=== PATIENT | female | born 1965 | race Hispanic/Latino ===

== ENCOUNTER 2017-04-27 15:12 | Inpatient (IN) | payer BC ==
[~2017-04-27] VITALS: Ht 167.6 cm; Wt 109.1 kg
[2017-04-27 17:30] VITALS: BP 144/82
[2017-04-27 17:44] LABS: EOSINOPHILS % (AUTO) 3.4 % (0.0-8.0); HEMATOCRIT 43.5 % (36-48); MEAN CORPUSCULAR HEMOGLOBIN 31.4 pg (27.0-33.0); MEAN CORPUSCULAR HGB CONC 33.9 g/dL (32.0-36.0); MEAN CORPUSCULAR VOLUME 92.6 fL (79-99); MONOCYTES % (AUTO) 7.8 % (3.0-13.0); NEUTROPHILS % (AUTO) 58.8 % (40.0-77.0); PLATELET COUNT (AUTO) 399 K/uL (130-400); RED CELL DISTRIBUTION WIDTH 14.5 % (11.0-15.5); WHITE BLOOD COUNT (AUTO) 10.6 K/uL (4.8-10.8)
[2017-04-27 17:53] LABS: CREATININE 0.8 mg/dL (0.5-1.5); POTASSIUM 3.9 mmol/L (3.5-5.1)
[2017-04-27 17:58] LABS: INR 0.96 (0.85-1.15); PARTIAL THROMBOPLASTIN TIME 28.7 SEC (26.3-35.5); PROTHROMBIN TIME 10.1 SEC (9.6-11.6)
[2017-04-27] MEDS ORDERED: LOSA1TAB37 PO (17:58)
[2017-04-27] MEDS ORDERED: MONT10TA24 PO (17:58)
[2017-04-27] MEDS ORDERED: MOMETASONE FUROATE NASAL (17:58)
[2017-04-27] MEDS ORDERED: EZET10TA26 PO (17:58)
[2017-04-27] MEDS ORDERED: CETI10TA57 PO (17:58)
[2017-04-27 18:01] LABS: APPEARANCE,URINE Clear (CLEAR); BILIRUBIN,URINE Negative (NEGATIVE); COLOR,URINE Yellow (YELLOW); GLUCOSE, URINE (UA) Negative (NEGATIVE); KETONES,URINE Negative (NEGATIVE); LEUKOCYTE ESTERASE ,URINE Trace (NEGATIVE); NITRATE,URINE Negative (NEGATIVE); OCCULT BLOOD,URINE Moderate (NEGATIVE); PH,URINE 5.5 (5.0-8.0); PROTEIN,URINE Negative (NEGATIVE); UROBILINOGEN,URINE 0.2 mg/dL (0.2-1.0)
[2017-04-27 18:50] LABS: BACTERIA,URINE Few /HPF (None Seen); RBC,URINE None Seen /HPF (0-1); WBC,URINE 0-1 /HPF (0-1)
[2017-04-28] VITALS (20 sets, daily range): BP systolic 89–158; BP diastolic 50–95
[2017-04-28] MEDS ORDERED: LACTATED RINGERS 1000ML 1,000 ML IV ONE (11:25)
[2017-04-28] MEDS ORDERED: CEFAZOLIN SODIUM 1 GM VIAL ONE ×2 (11:25→12:23)
[2017-04-28] MEDS ORDERED: ACETAMINOPHEN EXTRA STRENGTH 500 MG TABLET ONE (12:01)
[2017-04-28] MEDS ORDERED: METOCLOPRAMIDE 10 MG/2 ML VIAL ONE (12:01)
[2017-04-28] MEDS ORDERED: OXYCODONE HCL 10 MG TAB.SR.12H PO ONE (12:02)
[2017-04-28] MEDS ORDERED: BUPIVACAINE/EPI/PF 0.25% 30ML VIAL IJ ONE (12:23)
[2017-04-28] MEDS ORDERED: TRANEXAMIC ACID 1000MG/10ML IV ONE (12:23)
[2017-04-28] MEDS ORDERED: ONDANSETRON HCL 4 MG/2 ML VIAL ONE ×2 (13:31→15:24)
[2017-04-28] MEDS ORDERED: LIDOCAINE HCL-MPF 1% 5ML AMP IJ ONE (13:31)
[2017-04-28] MEDS ORDERED: GLYCOPYRROLATE 0.2 MG/ML 5 ML VIAL ONE ×2 (13:31→15:24)
[2017-04-28] MEDS ORDERED: LIDOCAINE PF 2% 5ML ABBOJECT ONE (13:31)
[2017-04-28] MEDS ORDERED: ROCURONIUM BROMIDE 10MG/1ML 5ML VL ONE ×2 (13:32→15:24)
[2017-04-28] MEDS ORDERED: PROPOFOL 10 MG/ML 20ML VIAL IV ONE ×2 (13:32→14:33)
[2017-04-28] MEDS ORDERED: LIDOCAINE HCL 2% JELLY 5 ML ONE (13:32)
[2017-04-28] MEDS ORDERED: MIDAZOLAM HCL 1 MG/ML 2ML VIAL ONE (13:32)
[2017-04-28] MEDS ORDERED: NEOSTIGMINE METHYLSULFATE 1MG/ML IV ONE ×2 (13:32→15:24)
[2017-04-28] MEDS ORDERED: FENTANYL CITRATE PF 50 MCG/1 ML 2ML VIAL ONE ×2 (13:32→14:31)
[2017-04-28] MEDS ORDERED: CEFAZOLIN SODIUM 1 GM VIAL IVP ONE (13:56)
[2017-04-28] MEDS ORDERED: CEFAZOLIN SODIUM 1 GM VIAL IRRIG ONE (14:34)
[2017-04-28] MEDS ORDERED: ROPIVACAINE 0.5% 5MG/ML 30ML IJ ONE (15:24)
[2017-04-28] MEDS ORDERED: DEXAMETHASONE SOD PHOSPHATE 10MG/ML 1ML VIAL ONE (15:24)
[2017-04-28] MEDS ORDERED: DiphenhydrAMINE HCL 50 MG/ML VIAL IVP PRN (15:45)
[2017-04-28] MEDS ORDERED: LIDOCAINE HCL-MPF 1% 2ML VIAL IVP PRN (15:45)
[2017-04-28] MEDS ORDERED: PROMETHAZINE HCL 25 MG/ML 1ML AMPULE IM PRN (15:45)
[2017-04-28] MEDS ORDERED: TRAMADOL HCL 50 MG TABLET PO PRN (15:45)
[2017-04-28] MEDS ORDERED: FERROUS FUMARATE 324 MG TABLET PO PRN (15:45)
[2017-04-28] MEDS ORDERED: CALCIUM CARBONATE 500 MG TABLET PO PRN (15:45)
[2017-04-28] MEDS ORDERED: POTASSIUM CHLORIDE 20MEQ/100ML 100 ML IV PRN (15:45)
[2017-04-28] MEDS ORDERED: TEMAZEPAM 15 MG CAPSULE PO PRN (15:45)
[2017-04-28] MEDS ORDERED: POTASSIUM CHLORIDE 20 MEQ ERTAB PO PRN (15:45)
[2017-04-28] MEDS ORDERED: POTASSIUM CHLORIDE 10% ELIXIR 20 MEQ/15 ML UDCUP PO PRN (15:45)
[2017-04-28] MEDS ORDERED: DIPHENHYDRAMINE HCL 25 MG CAPSULE PO PRN (15:45)
[2017-04-28] MEDS: ACETAMINOPHEN 325 MG TAB PO SCH ×2 (15:45→20:44)
[2017-04-28] MEDS ORDERED: MEPERIDINE-PF 25 MG/ML SYG ONE (16:32)
[2017-04-28] MEDS: SODIUM CHLORIDE 0.9% 1000ML 1,000 ML IV SCH (18:07)
[2017-04-28] MEDS: ASPIRIN 325 MG TABLET PO SCH (20:43)
[2017-04-28] MEDS: FAMOTIDINE 20MG TAB 20 MG TAB PO SCH (20:43)
[2017-04-28] MEDS: PREGABALIN 25 MG CAP PO SCH (20:43)
[2017-04-28] MEDS: CEFAZOLIN 3GM /D5W 100ML 100 ML IV SCH (21:59)
[2017-04-28] MEDS: OXYCODONE HCL 5 MG TAB PO PRN (22:01)
[2017-04-29] VITALS (7 sets, daily range): BP systolic 136–154; BP diastolic 73–93
[2017-04-29] MEDS: SODIUM CHLORIDE 0.9% 1000ML 1,000 ML IV SCH ×2 (01:41→08:41)
[2017-04-29] MEDS: ACETAMINOPHEN 325 MG TAB PO SCH ×4 (03:20→21:53)
[2017-04-29] MEDS: OXYCODONE HCL 5 MG TAB PO PRN ×4 (03:21→20:19)
[2017-04-29 05:03] LABS: HEMATOCRIT 38.5 % (36-48); MEAN CORPUSCULAR HEMOGLOBIN 31.8 pg (27.0-33.0); MEAN CORPUSCULAR HGB CONC 34.9 g/dL (32.0-36.0); MEAN CORPUSCULAR VOLUME 91.2 fL (79-99); PLATELET COUNT (AUTO) 306 K/uL (130-400); RED BLOOD CELL COUNT(AUTO) 4.22 MIL/uL (4.00-5.50); RED CELL DISTRIBUTION WIDTH 14.1 % (11.0-15.5); WHITE BLOOD COUNT (AUTO) 15.3 K/uL (4.8-10.8)
[2017-04-29 05:20] LABS: CREATININE 0.8 mg/dL (0.5-1.5); POTASSIUM 4.6 mmol/L (3.5-5.1)
[2017-04-29] MEDS: CEFAZOLIN 3GM /D5W 100ML 100 ML IV SCH (05:31)
[2017-04-29] MEDS: POLYETHYLENE GLYCOL 3350 17 GM POWD.PACK PO SCH (08:38)
[2017-04-29] MEDS: EZETIMIBE 10 MG TAB PO SCH (08:39)
[2017-04-29] MEDS: CETIRIZINE HCL 5 MG TABLET PO SCH (08:39)
[2017-04-29] MEDS: LOSARTAN/HYDROCHLOROTHIAZIDE 50-12.5MG TABLET PO SCH (08:39)
[2017-04-29] MEDS: ASPIRIN 325 MG TABLET PO SCH ×2 (08:39→20:20)
[2017-04-29] MEDS: PREGABALIN 25 MG CAP PO SCH ×2 (08:39→20:20)
[2017-04-29] MEDS: MONTELUKAST SODIUM 10 MG TAB PO SCH (08:39)
[2017-04-29] MEDS: FAMOTIDINE 20MG TAB 20 MG TAB PO SCH ×2 (08:39→20:20)
[2017-04-29] MEDS: FLUTICASONE PROPIONATE 50MCG/SPRAY 16 GM BOTTLE EN SCH (08:42)
[2017-04-29] MEDS: PSYLLIUM SEED 1 EACH PACKET PO SCH (12:46)
[2017-04-30] MEDS: OXYCODONE HCL 5 MG TAB PO PRN ×3 (04:19→14:58)
[2017-04-30] MEDS: ACETAMINOPHEN 325 MG TAB PO SCH ×3 (04:20→18:08)
[2017-04-30 04:31] VITALS: BP 136/79
[2017-04-30 05:31] LABS: HEMATOCRIT 37.1 % (36-48); MEAN CORPUSCULAR HEMOGLOBIN 31.5 pg (27.0-33.0); MEAN CORPUSCULAR HGB CONC 34.6 g/dL (32.0-36.0); PLATELET COUNT (AUTO) 301 K/uL (130-400); RED BLOOD CELL COUNT(AUTO) 4.07 MIL/uL (4.00-5.50); RED CELL DISTRIBUTION WIDTH 14.1 % (11.0-15.5); WHITE BLOOD COUNT (AUTO) 10.4 K/uL (4.8-10.8)
[2017-04-30 05:36] LABS: CREATININE 0.7 mg/dL (0.5-1.5); POTASSIUM 3.6 mmol/L (3.5-5.1)
[2017-04-30 07:00] VITALS: BP 146/77
[2017-04-30] MEDS: MONTELUKAST SODIUM 10 MG TAB PO SCH (09:58)
[2017-04-30] MEDS: ASPIRIN 325 MG TABLET PO SCH (09:59)
[2017-04-30] MEDS: EZETIMIBE 10 MG TAB PO SCH (09:59)
[2017-04-30] MEDS: PREGABALIN 25 MG CAP PO SCH (10:01)
[2017-04-30] MEDS: CETIRIZINE HCL 5 MG TABLET PO SCH (10:01)
[2017-04-30] MEDS: LOSARTAN/HYDROCHLOROTHIAZIDE 50-12.5MG TABLET PO SCH (10:01)
[2017-04-30] MEDS: FAMOTIDINE 20MG TAB 20 MG TAB PO SCH (10:01)
[2017-04-30] MEDS: POLYETHYLENE GLYCOL 3350 17 GM POWD.PACK PO SCH (10:05)
[2017-04-30] MEDS: FLUTICASONE PROPIONATE 50MCG/SPRAY 16 GM BOTTLE EN SCH (10:06)
[2017-04-30] MEDS ORDERED: BISACODYL 5 MG TABLET.DR PO ONE (10:08)
[2017-04-30 11:00] VITALS: BP 147/80
[2017-04-30] MEDS: PSYLLIUM SEED 1 EACH PACKET PO SCH (12:19)
[2017-04-30] MEDS ORDERED: BISACODYL 5 MG TABLET.DR PO PRN (15:45)
[2017-04-30 16:00] VITALS: BP 125/80
[2017-04-30] MEDS ORDERED: HYDR-309 PO (18:34)
[2017-04-30] MEDS ORDERED: ASPI-1012 PO (18:34)
[2017-05-01] MEDS ORDERED: BISACODYL 10 MG SUPP.RECT RC PRN (15:45)
== END 2017-04-30 19:25 | disposition home health service (06) | DRG 470 ==
LOC: EDSTATUS 16:00 → DAHIP 16:36 → UNDOADMIN 16:36 → DAHIP 04-28 11:06 → 4AH 04-28 16:20
PROVIDERS: ADMIT Orthopaedic Surgery; ATTEND Orthopaedic Surgery
PROC: 0SRD0JZ Replacement of Left Knee Joint with Synthetic Substitute, Open Approach (ICD-10-PCS; principal; 2017-04-28 13:37)
DX: M17.12 Unilateral primary osteoarthritis, left knee (principal); E66.01 Morbid (severe) obesity due to excess calories; I10 Essential (primary) hypertension; Z96.651 Presence of right artificial knee joint; M23.242 Derangement of anterior horn of lateral meniscus due to old tear or injury, left knee; M23.212 Derangement of anterior horn of medial meniscus due to old tear or injury, left knee; Z87.891 Personal history of nicotine dependence; Z68.38 Body mass index [BMI] 38.0-38.9, adult
CPT/HCPCS: 36415; 80048; 81001; 85025; 85027; 85610; 85730; 88305; 88311; 96374; A4218; C1713; J0690; J1100; J2001; J2175; J2250; J2405; J2704; J2710; J2765; J2795; J3010; J3490; J7030; J7120

== ENCOUNTER 2020-04-26 10:13 | Emergency (ER) | payer BC ==
[~2020-04-26 10:13] MED LIST: ASPI-1012 PO; CETI10TA57 PO; EZET10TA48 PO; HYDR-4457 PO; LOSA1TAB37 PO; MOMETASONE FUROATE NASAL; MONT-39 PO
[2020-04-26] MEDS ORDERED: ACETAMINOPHEN WITH CODEINE 1 TAB TAB ONE (10:42)
== END 2020-04-26 11:37 | disposition home or self-care (01) ==
LOC: EDH 10:13
DX: S20.219A Contusion of unspecified front wall of thorax, initial encounter (principal); S80.02XA Contusion of left knee, initial encounter; I10 Essential (primary) hypertension; E78.00 Pure hypercholesterolemia, unspecified; Z87.891 Personal history of nicotine dependence; Z88.6 Allergy status to analgesic agent; W01.0XXA Fall on same level from slipping, tripping and stumbling without subsequent striking against object, initial encounter; Y93.01 Activity, walking, marching and hiking; Y92.89 Other specified places as the place of occurrence of the external cause; Y99.8 Other external cause status
CPT/HCPCS: 71101; 73562